=== PATIENT | female | born 1980 | race African-American/Black ===

== ENCOUNTER 2021-05-04 16:09 | Observation (INO) ==
[2021-05-04] MEDS ORDERED: HYDROmorphone 2 MG/1 ML VIAL IV STA (16:34)
[2021-05-04] MEDS ORDERED: ONDANSETRON 4 MG/2 ML VIAL IV STA (16:34)
[2021-05-04 18:22] LABS: Basophils % 0.4 % (0.0-0.8); Eosinophils % 0.3 % (0.00-10.9); Hematocrit 44.2 VOL% (35.7-47.0); Hemoglobin 13.5 GM/DL (12.0-16.0); Immature Granulocytes % 0.6 %; Immature Granulocytes Absolute 0.06 #; Lymphocytes # 1.5 10*3/uL (1.4-4.0); Lymphocytes % 14.6 % (21.3-54.2); Mean Corpuscular HGB Conc 30.5 GM/DL (32-36); Mean Corpuscular Volume 84.8 FL (87-102); Mean Platelet Volume 10.7 FL (9.6-12.0); Neutrophils % 79.1 % (38.7-73.9); Platelet Count 246 T/CUMM (130-400); Red Blood Count 5.21 MC/CUMM (3.8-5.5); White Blood Count 10.4 T/CUMM (4-12)
[2021-05-04 18:46] LABS: Alanine Aminotransferase 18 U/L (13-56); Albumin 2.8 G/DL (3.4-5.0); Alkaline Phosphatase 69 U/L (45-117); Aspartate Amino Transferase 18 U/L (0-37); Bilirubin,Total < 0.39 MG/DL (0.20-1.00); Blood Urea Nitrogen 19 MG/DL (7-18); Calcium 7.9 MG/DL (8.5-10.1); Carbon Dioxide 25 MMOL/L (21-32); Estimated Glom Filtration Rate 61 ML/MIN; Glucose 105 MG/DL (74-106); Osmolality,Calculated 280.4 MOS/KG (273-304); Potassium 4.1 MMOL/L (3.5-5.1); Sodium 140 MMOL/L (136-145); Total Protein 6.1 G/DL (6.4-8.2)
[2021-05-04] MEDS ORDERED: ONDANSETRON 4 MG/2 ML VIAL IV PRN (19:06)
[2021-05-04] MEDS: HYDROmorphone 2 MG/1 ML VIAL IV PRN ×2 (19:58→22:57)
[2021-05-04] MEDS ORDERED: PROMETHAZINE 25 MG/1 ML VIAL ONE (20:01)
[2021-05-04 20:18] LABS: INR 0.9; PT Patient Result 10.5 SECS (10.5-12.0)
[2021-05-04] MEDS: DEXTROSE 5% NACL 0.45% 1,000 ML IV SCH (22:55)
[2021-05-05] MEDS: HYDROmorphone 2 MG/1 ML VIAL IV PRN ×3 (03:16→13:35)
[2021-05-05] MEDS ORDERED: ROCURONIUM 50 MG/5 ML VIAL IV ONE (08:54)
[2021-05-05] MEDS ORDERED: propofoL 200 MG/20 ML VIAL IV ONE (08:54)
[2021-05-05] MEDS ORDERED: fentaNYL 100 MCG/2 ML VIAL ONE (08:54)
[2021-05-05] MEDS ORDERED: ONDANSETRON 4 MG/2 ML VIAL ONE ×2 (08:54→12:35)
[2021-05-05] MEDS ORDERED: SUCCINYLCHOLINE 200 MG/10 ML VIAL ONE (08:54)
[2021-05-05] MEDS ORDERED: DEXAMETHASONE 4 MG/1 ML VIAL ONE (08:54)
[2021-05-05] MEDS ORDERED: MIDAZOLAM 2 MG/2 ML VIAL ONE (08:56)
[2021-05-05] MEDS ORDERED: ceFAZolin 1,000 MG VIAL ONE (09:20)
[2021-05-05] MEDS ORDERED: KETAMINE 500 MG/10 ML VIAL ONE (09:21)
[2021-05-05] MEDS ORDERED: SEVOFLURANE 1 UNIT/15 MINUTE INH ONE ×3 (09:37→10:54)
[2021-05-05] MEDS ORDERED: ALBUTEROL INHALER 18 GM INH ONE (09:37)
[2021-05-05] MEDS ORDERED: LACTATED RINGERS 1,000 ML IV ONE (09:38)
[2021-05-05] MEDS ORDERED: SODIUM CHLORIDE 0.9% 1,000 ML IV ONE (09:38)
[2021-05-05] MEDS ORDERED: METOPROLOL TARTRATE 5 MG/5 ML VIAL IV ONE (09:40)
[2021-05-05] MEDS ORDERED: BUPIVACAINE 0.5% 50 ML VIAL ONE (10:05)
[2021-05-05] MEDS ORDERED: ONDANSETRON 4 MG/2 ML VIAL IV PRN ×2 (11:40→12:36)
[2021-05-05] MEDS ORDERED: HYDROmorphone 2 MG/1 ML VIAL IV PRN ×2 (11:40→12:36)
[2021-05-05] MEDS ORDERED: MAGNESIUM HYDROXIDE SUSP 30 ML UDCUP PO PRN (11:40)
[2021-05-05] MEDS ORDERED: oxyCODONE/ACETAMINOPHEN 5-325 MG TABLET PO PRN (11:40)
[2021-05-05] MEDS ORDERED: ACETAMINOPHEN INJ 1,000 MG/100 ML VIAL IV ONE (12:00)
[2021-05-05] MEDS ORDERED: HYDROmorphone 2 MG/1 ML VIAL ONE (12:35)
[2021-05-05] MEDS: DEXTROSE 5% NACL 0.45% 1,000 ML IV SCH (19:44)
[2021-05-05] MEDS: oxyCODONE/ACETAMINOPHEN 5-325 MG TABLET PO PRN (19:45)
[2021-05-05] MEDS: ceFAZolin 2,000 MG/50 ML DUPLEX IV SCH (23:42)
[2021-05-06] MEDS: HYDROmorphone 2 MG/1 ML VIAL IV PRN ×3 (03:50→11:42)
[2021-05-06] MEDS: DEXTROSE 5% NACL 0.45% 1,000 ML IV SCH (04:17)
[2021-05-06] MEDS: ceFAZolin 2,000 MG/50 ML DUPLEX IV SCH (04:19)
[2021-05-06 04:52] LABS: Basophils % 0.1 % (0.0-0.8); Hematocrit 36.3 VOL% (35.7-47.0); Immature Granulocytes % 0.6 %; Lymphocytes # 1.2 10*3/uL (1.4-4.0); Lymphocytes % 7.8 % (21.3-54.2); Mean Corpuscular HGB Conc 30.9 GM/DL (32-36); Mean Corpuscular Volume 83.4 FL (87-102); Monocytes % 7.8 % (1.7-12.7); Neutrophils % 83.7 % (38.7-73.9); Platelet Count 219 T/CUMM (130-400); Red Blood Count 4.35 MC/CUMM (3.8-5.5); Red Cell Distribution Width 17.4 % (9.3-17.3)
[2021-05-06 05:00] LABS: Hemoglobin 11.2 GM/DL (12.0-16.0); White Blood Count 15.9 T/CUMM (4-12)
[2021-05-06 05:11] LABS: Calcium 8.1 MG/DL (8.5-10.1); Osmolality,Calculated 282.1 MOS/KG (273-304); Potassium 3.9 MMOL/L (3.5-5.1)
[2021-05-06] MEDS: oxyCODONE/ACETAMINOPHEN 5-325 MG TABLET PO PRN (08:45)
[2021-05-06] MEDS ORDERED: PANTOPRAZOLE 40 MG TABLET PO SCH (09:00)
[2021-05-06 12:05] VITALS: BP 149/95
== END 2021-05-06 13:05 | disposition home or self-care (01) ==
LOC: N.EDINP 16:09 → N.ED 16:09 → N.3E 20:08
PROVIDERS: ADMIT Orthopaedic Surgery; ATTEND Orthopaedic Surgery